=== PATIENT | female | born 1990 | race Caucasian/White ===

== ENCOUNTER 2019-05-17 21:02 | Emergency (ER) | payer BC ==
[2019-05-17 21:29] VITALS: BP 110/65
[2019-05-17] MEDS ORDERED: Ibuprofen TAB* 600 MG PO ONE (22:14)
[2019-05-17] MEDS ORDERED: Docusate LIQ* 100 MG/10 ML UDC PO ONE (22:18)
--- NOTE | 2019-05-17 22:30 | UC ---
Abdominal Pain Female HPI - HPI Summary HPI Summary: Patient is a 28yo female presenting with constipation x3 days and nausea, vomiting, and abdominal pain x2 hours. Patient states she had one episode of emesis on her way here. Notes pain in her LLQ that was "sharp and crampy." States she felt somewhat better after throwing up. Also notes feeling much better since arriving and lying down. Notes nausea and abdominal pain have dissipated. She denies fever but notes some chills today. Denies chronic constipation. Denies PMH of GI disorders, but says Aunt may have had ulcerative colitis. Patient denies hematemesis. Notes taking miralax approx 5 hours before coming in. She has been passing gas but no BM yet. She denies any changes in appetite or fluid intake. Denies urinary symptoms. - History of Current Complaint Chief Complaint: UCGI Stated Complaint: CONSTIPATION, AND VOMITING Hx Obtained From: Patient Hx Last Menstrual Period: 2 weeks ago Pain Intensity: 6 Pain Scale Used: 0-10 Numeric Allergies/Adverse Reactions: Allergies Allergy/AdvReac Type Severity Reaction Status Date / Time No Known Allergies Allergy Verified 05/17/19 21:29 Home Medications: Home Medications Atomoxetine HCl [Strattera] 18 mg PO 05/17/19 [History] Polyethylene Glycol 3350* [Miralax*] 17 gm PO ONCE PRN 05/17/19 [History Confirmed 05/17/19] QUEtiapine TAB* [Seroquel 100 MG *] 150 mg PO BEDTIME 05/17/19 [History Confirmed 05/17/19] lamoTRIgine TAB(*) [LaMICtal TAB(*)] 100 mg PO BID 05/17/19 [History Confirmed 05/17/19] PMH/Surg Hx/FS Hx/Imm Hx Previously Healthy: Yes - Surgical History Surgical History: None - Family History Known Family History: Positive: Unknown - Social History Alcohol Use: Occasionally Substance Use Type: Marijuana Smoking Status (MU): Never Smoked Tobacco Review of Systems All Other Systems Reviewed And Are Negative: Yes Constitutional: Positive: Chills. Negative: Fever, Fatigue Skin: Positive: Negative ENT: Positive: Negative Respiratory: Positive: Negative. Negative: Shortness Of Breath Cardiovascular: Positive: Negative. Negative: Palpitations, Chest Pain Gastrointestinal: Positive: Abdominal Pain, Vomiting, Nausea, Other - constipation. Negative: Diarrhea Genitourinary: Positive: Negative Musculoskeletal: Positive: Negative Neurological: Positive: Negative Physical Exam Triage Information Reviewed: Yes Appearance: Well-Appearing, No Pain Distress, Well-Nourished Vital Signs: Initial Vital Signs Temp 98.2 F 05/17/19 21:25 Pulse 86 05/17/19 21:25 Resp 16 05/17/19 21:25 BP 110/65 05/17/19 21:25 Pulse Ox 99 05/17/19 21:25 Vital Signs Reviewed: Yes Eyes: Positive: Conjunctiva Clear ENT: Positive: Hearing grossly normal Neck: Positive: Supple Respiratory Exam: Normal Respiratory: Positive: Lungs clear, Normal breath sounds, No respiratory distress, No accessory muscle use. Negative: Crackles, Rhonchi, Stridor, Wheezing Cardiovascular Exam: Normal Cardiovascular: Positive: RRR. Negative: Tachycardia Abdominal Exam: Normal Abdomen Description: Positive: Nontender, Soft. Negative: CVA Tenderness (R), CVA Tenderness (L), Distended, Guarding, Hepatomegaly, McBurney's Point Tenderness, Splenomegaly Bowel Sounds: Positive: Present Neurological: Positive: Alert Psychological: Positive: Age Appropriate Behavior Skin Exam: Normal Abd Pain Female Course/Dx - Course Course Of Treatment: Patient already felt significantly better even before I examined her. She was given colace and ibuprofen here. Instructed her to drink fluids and use the miralax and colace otc as directed to help relieve constipation. Patient's VS normal and no pain distress throughout visit. Instructed her to return or go to the emergency room if her symptoms persist or worsen. Patient voiced understanding and agreed to the treatment plan. - Differential Dx/Diagnosis Provider Diagnosis: Nausea & vomiting, Acute constipation, Left lower quadrant abdominal pain Discharge ED - Sign-Out/Discharge Documenting (check all that apply): Patient Departure All imaging exams completed and their final reports reviewed: No Studies - Discharge Plan Condition: Stable Disposition: HOME Referrals: [facility] [Outside] - If Needed [facility] [Outside] - If Needed Additional Instructions: As discussed, you may continue to take Miralax and colace over the counter as directed for relief of constipation. You received a dose of colace tonight. Get plenty of rest and fluids. Eat a bland diet, such as bread, bananas, and rice while experiencing nausea and vomiting. Follow up with your PCP, the [facility], or the Physician Referral as listed below for further evaluation if your symptoms persist or become recurrent. Go to the emergency department if you develop fever, excessive nausea and vomiting, or are unable to keep fluids down. - Billing Disposition and Condition Condition: STABLE Disposition: Home
== END 2019-05-17 22:39 | disposition home or self-care (01) ==
LOC: UCEAST 21:02
DX: K59.00 Constipation, unspecified (principal); R11.2 Nausea with vomiting, unspecified; R10.31 Right lower quadrant pain
CPT/HCPCS: 99202; A9270-GY; G0463